=== PATIENT | female | born 1990 | race Caucasian/White ===

== ENCOUNTER 2023-01-23 15:04 | Emergency (ER) | payer BC, SELFPAY ==
[2023-01-23 15:25] VITALS: BP 132/85; PULSE 91; RESP 16; TEMP 36.9; O2SAT 100; BMI 21.6
--- NOTE | 2023-01-23 15:46 | DI.US.S_ITS ---
PROCEDURE: US OB <= 14 WEEKS FETUS INDICATIONS: vag bleeding/cramping. 6wks preg OUTSIDE/PRIOR DATING DATA: Last menstrual period (LMP): 12/11/2022. LMP-based estimated date of delivery (KENN): 09/17/2023. First dating scan (date and location): Today's exam. Estimated date of delivery (KENN) from first dating scan: Not applicable. TECHNIQUE: Real-time scanning was performed of the fetus and maternal pelvic organs, with image documentation. Endovaginal scanning was also performed to better visualize the fetus and maternal ovaries. COMPARISON: None. FINDINGS: No intrauterine gestational sac visualized. No adnexal mass. Ovaries are within normal limits. IMPRESSION: of unknown location, as no intrauterine is seen and there is no adnexal mass. The differential includes early gestational , ectopic or miscarriage. Trending beta hCGs and sonographic follow-up as necessary. We strive to produce accurate, complete, and clear reports of imaging services. To assist us in improving patient care, this report was composed using standard report templates and voice recognition software. Therefore, it may contain abnormal punctuation, insertions and/or omissions. Occasional wrong-word or sound-alike substitutions may occur. Though we review the report and make efforts to correct it, we do recommend that the report be read carefully in proper context to recognize any text inaccuracies. Dictated by: Mustapha Madison M.D. on 01/23/2023 at 16:53 Approved by: Mustapha Madison M.D. on 01/23/2023 at 16:54
[2023-01-23 16:07] LABS: Alanine Aminotransferase 16 IU/L (<35); Albumin 4.2 g/dL (3.5-5.0); Albumin Globulin Ratio 1.5 (1.0-2.8); Alkaline Phosphatase 51 U/L (38-126); Aspartate Aminotransferase 25 IU/L (14-36); BUN Creatinine Ratio 16.3 (6-22); Bilirubin Total 0.4 mg/dL (0.2-1.3); Blood Urea Nitrogen 8 mg/dL (7-17); Carbon Dioxide 29 mmol/L (22-32); Chloride 104 mmol/L (98-107); Estimated Glomerular Filt Rate > 60 mL/min (>60); Globulin 2.8 g/dL (1.7-4.1); Glucose 125 mg/dL (70-100); HEMOLYSIS < 15 (0-50); Potassium 3.8 mmol/L (3.4-5.1); Sodium 139 mmol/L (137-145)
[2023-01-23 16:09] LABS: Add Manual Diff / Slide Review NO; Basophils Absolute Auto 0 /uL (0-100); Basophils Percent Auto 0.3 % (0-2); Eosinophils Absolute Auto 0 /uL (0-450); Eosinophils Percent Auto 0.3 % (2-4); Hemoglobin 12.4 g/dL (12.0-16.0); Lymphocytes Absolute Auto 1300 /uL (1100-4500); Lymphocytes Percent Auto 22.7 % (25-40); Mean Corpuscular HGB Conc 33.5 % (30-36); Mean Corpuscular Hemoglobin 28.9 PG (26-34); Mean Corpuscular Volume 86.2 fL (80-100); Monocytes Absolute Auto 500 /uL (0-900); Monocytes Percent Auto 7.7 % (3-14); Neutrophils Absolute Auto 4100 /uL (1500-7000); Platelet Count 249 X10^3/uL (150-400); Red Cell Distribution Width 14.2 % (11.6-14.8); White Blood Cell Count 5.9 X10^3/uL (4.5-11.0)
[2023-01-23 17:00] LABS: Bacteria Urine Occasional (0-1); Culture Indicated Urine Cult Not Indicated; RBC Urine 1-5/HPF (0-5/HPF); WBC Urine None Seen (0-5/HPF)
[2023-01-23 17:58] VITALS: BP 122/74; PULSE 76; O2SAT 100
[2023-01-23 18:00] VITALS: BP 120/71; PULSE 72; O2SAT 100
--- NOTE | 2023-01-23 18:24 | ED_ITS ---
HPI - General Adult General Chief complaint: Vaginal Bleeding Stated complaint: 6 wks /bleeding a lot Time Seen by Provider: 01/23/23 18:06 Source: patient Mode of arrival: Ambulatory History of Present Illness HPI narrative: 32-year-old presents at approximately 6 gestational age with a planned and anticipated with heavy vaginal bleeding that started this morning. He is currently visiting from [place] and her provider as she come in for further evaluation. She describes the bleeding as heavier than 1st day of her usual. But not dramatic clots, she is not having severe cramping, nausea, vomiting dizziness, orthostatic hypotension. No recent illnesses, fevers. No chest pain, palpitations or shortness of breath. Review of Systems Review of Systems Narrative: Pertinent positive and negative findings as per HPI Patient History Social History Smoking Status: Never smoker Smoking Status: Never smoker Substance Use Type: does not use Exam Initial Vital Signs Initial Vital Signs: Vital Signs Temperature 98.4 F 01/23/23 15:25 Pulse Rate 91 H 01/23/23 15:25 Respiratory Rate 16 01/23/23 15:25 Blood Pressure 132/85 01/23/23 15:25 Pulse Oximetry 100 01/23/23 15:25 Oxygen Delivery Method Room Air 01/23/23 15:25 General: Healthy appearing, in no acute distress. Able to give a complete and coherent history. Well-nourished well-developed HEENT: Moist mucous membranes, normal sclera with reactive pupils, Respiratory: Lungs are clear to auscultation, no wheezing no rales no rhonchi. Full and symmetrical air movement Cardiac: Regular rate and rhythm no murmurs no bruits Abdomen: Soft, nontender, good bowel tones, no flank pain Skin: Warm and dry, no rashes Neurologic: Grossly neurologically intact with no obvious asymmetries or abn ormalities Psych: Cooperative, appropriate insight and affect Course Orders Ordered: ED Orders 01/23/23 15:35 Complete Blood Count AUTO DIFF Stat Comprehensive Metabolic Panel Stat HCG Quantitative /Beta subunit Stat Type and Screen Stat 01/23/23 15:40 Urine Microscopic Stat 01/23/23 15:46 US OB <= 14 weeks fetus Stat Vital Signs Vital signs: Vital Signs - 8 hr 01/23/23 15:25 01/23/23 17:58 01/23/23 17:58 Temperature 98.4 F Pulse Rate 91 H 76 Respiratory Rate 16 Blood Pressure 132/85 122/74 Pulse Oximetry 100 100 Oxygen Delivery Method Room Air Medical Decision Making Lab Data 01/23/23 15:35 01/23/23 15:35 Labs: Lab Results 01/23/23 01/23/23 01/23/23 Range/Units 15:35 15:35 15:35 WBC 5.9 (4.5-11.0) X10^3/uL RBC 4.30 (4.0-5.2) X10^6/uL Hgb 12.4 (12.0-16.0) g/dL Hct 37.0 (36-46) % MCV 86.2 (80-100) fL MCH 28.9 (26-34) PG MCHC 33.5 (30-36) % RDW 14.2 (11.6-14.8) % Plt Count 249 (150-400) X10^3/uL Neut % (Auto) 69.0 (50-75) % Lymph % (Auto) 22.7 L (25-40) % [place] % (Auto) 7.7 (3-14) % Eos % (Auto) 0.3 L (2-4) % Baso % (Auto) 0.3 (0-2) % Neut # (Auto) 4100 (8870-5517) /uL Lymph # (Auto) 1300 (5865-5395) /uL [place] # (Auto) 500 (0-900) /uL Eos # (Auto) 0 (0-450) /uL Baso # (Auto) 0 (0-100) /uL Sodium 139 (137-145) mmol/L Potassium 3.8 (3.4-5.1) mmol/L Chloride 104 (98-107) mmol/L Carbon Dioxide 29 (22-32) mmol/L BUN 8 (7-17) mg/dL Creatinine 0.49 L (0.52-1.04) mg/dL Estimated GFR > 60 (>60) mL/min BUN/Creatinine Ratio 16.3 (6-22) Glucose 125 H (70-100) mg/dL Calcium 9.0 (8.4-10.2) mg/dL Total Bilirubin 0.4 (0.2-1.3) mg/dL AST 25 (14-36) IU/L ALT 16 (<35) IU/L Alkaline Phosphatase 51 (38-126) U/L Total Protein 7.0 (6.3-8.2) g/dL Albumin 4.2 (3.5-5.0) g/dL Globulin 2.8 (1.7-4.1) g/dL Albumin/Globulin Ratio 1.5 (1.0-2.8) HCG, Quant 49.0 mIU/mL Urine RBC (0-5/HPF) Urine WBC (0-5/HPF) Urine Bacteria (None) Ur Culture Indicated? Blood Type O Positive Antibody Screen Negative 01/23/23 Range/Units 15:40 WBC (4.5-11.0) X10^3/uL RBC (4.0-5.2) X10^6/uL Hgb (12.0-16.0) g/dL Hct (36-46) % MCV (80-100) fL MCH (26-34) PG MCHC (30-36) % RDW (11.6-14.8) % Plt Count (150-400) X10^3/uL Neut % (Auto) (50-75) % Lymph % (Auto) (25-40) % [place] % (Auto) (3-14) % Eos % (Auto) (2-4) % Baso % (Auto) (0-2) % Neut # (Auto) (9558-9321) /uL Lymph # (Auto) (9049-9701) /uL [place] # (Auto) (0-900) /uL Eos # (Auto) (0-450) /uL Baso # (Auto) (0-100) /uL Sodium (137-145) mmol/L Potassium (3.4-5.1) mmol/L Chloride (98-107) mmol/L Carbon Dioxide (22-32) mmol/L BUN (7-17) mg/dL Creatinine (0.52-1.04) mg/dL Estimated GFR (>60) mL/min BUN/Creatinine Ratio (6-22) Glucose (70-100) mg/dL Calcium (8.4-10.2) mg/dL Total Bilirubin (0.2-1.3) mg/dL AST (14-36) IU/L ALT (<35) IU/L Alkaline Phosphatase (38-126) U/L Total Protein (6.3-8.2) g/dL Albumin (3.5-5.0) g/dL Globulin (1.7-4.1) g/dL Albumin/Globulin Ratio (1.0-2.8) HCG, Quant mIU/mL Urine RBC 1-5/hpf (0-5/HPF) Urine WBC None seen (0-5/HPF) Urine Bacteria Occasional (0-1) (None) Ur Culture Indicated? Cult not indicated Blood Type Antibody Screen Urine Dip Bedside Urine Glucose Negative Bedside Urine Bilirubin - Negative Bedside Urine Ketone - Negative Urine Specific [place] 1.01 Bedside Urine Occult Blood + Bedside Urine pH 7 Bedside Urine Protein - Negative Bedside Urine Urobilinogen - Negative Bedside Urine Nitrite - Negative Bedside Urine Leukocytes - Negative Esterase Point of care testing: Urine Dip Bedside Urine Glucose Negative Bedside Urine Bilirubin - Negative Bedside Urine Ketone - Negative Urine Specific [place] 1.01 Bedside Urine Occult Blood + Bedside Urine pH 7 Bedside Urine Protein - Negative Bedside Urine Urobilinogen - Negative Bedside Urine Nitrite - Negative Bedside Urine Leukocytes - Negative Esterase MDM Narrative Medical decision making narrative: CC: Anticipated 6 week with heavy vaginal bleeding, this is a new problem uncertain diagnosis Complicating co-morbidities: None. Healthy 1st . Currently on vitamins. Data collected from: patient, Social determinants of health that may influence the patients condition: [place] Differential considered: Miscarriage, ectopic, usual menses, molar Exam documented above, pertinent findings include: Benign exam, no significant cramping, heart and lungs are unremarkable Lab Test results independently reviewed as above. Pertinent findings: CBC is unremarkable with H&H of 12.4 and 37.0 Chemistries are reassuring Quantitative hCG is at 49 Urine dip does not suggest urinary tract infection Imaging studies independently reviewed: Ultrasound shows no intrauterine gestational sac, no adnexal masses and normal ovaries Discussion: 32-year-old with very early and miscarriage. Discussed findings, anticipated course of bleeding, pain control including Naprosyn, ibuprofen and Tylenol. Discussed reassuring statistics on healthy pregnancies after a miscarriage particularly in light of an initial healthy . Encouraged her to continue her vitamins and follow-up with her video conference specialist when she returns home. Questions are answered and she is safe for discharge home Discharge Plan Departure Patient Disposition: Home Clinical Impression: Miscarriage Instructions: DI for Miscarriage Activity Restrictions/Additional Instructions: Thank you for coming in today I wish this had worked out differently for you. You are having a miscarriage. The ultrasound does not show any findings to suggest or ectopic . Your quantitative HCG, the hormone, is at 49 which is quite low and very consistent with a miscarriage. Using 2 Aleve in the morning and 2 at night can help with cramping. Another option is using 400 mg of ibuprofen (2 [id number] pills) and 1 Tylenol every 6 hours If you find that you are having bright-red gushing blood, going through more than a full pad an hour, becoming lightheaded or have concerns with a volume of bleeding it is very appropriate to return to the emergency department. If you have questions over the course of the evening, you can call back to the ER at [phone] Nunes. I am here till 7:00 a.m. and happy to help with questions please follow up with your video conference specialist when you return home. Stand Alone Forms: Patient Portal/API
[2023-01-23 18:30] VITALS: BP 126/81; PULSE 80; O2SAT 100
[2023-01-23] MEDS: KETOROLAC 30 MG/ML VIAL 15 MG IV (18:34)
== END 2023-01-23 19:00 | disposition home or self-care (01) ==
PROVIDERS: Emergency Medicine; Emergency Provider Emergency Medicine
DX: O03.9 Complete or unspecified spontaneous abortion without complication (principal)
CPT/HCPCS: 36415; 76801; 76817; 80053; 81003; 81015; 84702; 85025; 86850; 86900; 86901; 96374; 99284; J1885